=== PATIENT | female | born 1940 | race Caucasian/White ===

== ENCOUNTER → 2018-09-22 12:47 | Outpatient (CLI) | payer MEDICARE, SELFPAY ==
--- NOTE | 2018-09-22 | DI.CT.S_ITS ---
PROCEDURE: CT UE LT WO CON INDICATIONS: PRIMARY OSTEOARTHRITIS OF LEFT SHOULDER. Left shoulder pain TECHNIQUE: Noncontrast 1-1.5 mm thick sections acquired from the acromioclavicular joint to the inferior scapula, with coronal and sagittal reformatting. COMPARISON: None. FINDINGS: Image quality: Excellent. Bones: Moderate to severe glenohumeral joint osteoarthritis is seen with significant joint space narrowing, extensive subchondral sclerosis and cyst formation. Prominent inferior marginal osteophyte formation is noted. A large intraosseous cyst in superior glenoid is seen. Mild to moderate acromioclavicular joint osteoarthritis is noted. No fracture or dislocation. No suspicious bony lesions. No significant glenoid version. Soft tissues: Small to moderate glenohumeral joint effusion is seen. No full-thickness rotator cuff tendon rupture is identified. Mild supraspinatus muscle atrophy is seen. IMPRESSION: 1. Moderate to severe glenohumeral joint osteoarthritis. Mild to moderate acromioclavicular joint osteoarthritis. No significant glenoid version. No fracture or dislocation. No suspicious bony lesion. 2. Small to moderate amount of joint effusion. No gross full-thickness rotator cuff tendon rupture. Mild supraspinatus muscle atrophy. Dictated by: Chirag Marks M.D. on 09/22/2018 at 13:48 Approved by: Chirag Marks M.D. on 09/22/2018 at 13:54
== END ==
PROVIDERS: PCP Family Medicine; Visit Provider Orthopaedic Surgery
DX: M19.012 Primary osteoarthritis, left shoulder (principal)
CPT/HCPCS: 73200

== ENCOUNTER 2019-10-10 06:05 | Inpatient (IN) | payer MEDICARE, SELFPAY ==
[2019-09-28 08:33] VITALS: BMI 22.3
[2019-10-10] VITALS (15 sets, daily range): BP systolic 100–149; BP diastolic 48–78; PULSE 72–102; RESP 12–18; TEMP 35.9–36.6; O2SAT 92–98; BMI 22.3
--- NOTE | 2019-10-10 06:00 | DI.RAD.S_ITS ---
PROCEDURE: XR SHOULDER LT MIN 2V INDICATIONS: post op TECHNIQUE: 1 views of the shoulder were acquired. COMPARISON: [facility] [place], CR, XR SHOULDER 2+ VIEWS LEFT, 06/28/2019, 10:42. FINDINGS: Expected interval postsurgical changes are present related to a left shoulder arthroplasty. The metallic prosthetic components appear to be appropriately positioned. No displaced periprosthetic fractures are identified. Degenerative changes of the acromioclavicular joint appear to be present. Expected postoperative changes within the overlying soft tissues are present with areas of soft tissue air and edema. A surgical drainage catheter is evident. No unexpected radiopaque foreign bodies are identified. IMPRESSION: Expected postsurgical changes related to a left shoulder arthroplasty. Dictated by: Samuel Nair M.D. on 10/10/2019 at 9:39 Approved by: Samuel Nair M.D. on 10/10/2019 at 9:40
[2019-10-10] MEDS: LACTATED RINGERS 1,000 ML 42 ML IV (06:45)
[2019-10-10] MEDS: CELECOXIB 200 MG CAPSULE PO (06:52)
[2019-10-10] MEDS: ACETAMINOPHEN 325 MG TABLET 975 MG PO ×3 (06:52→20:36)
[2019-10-10] MEDS: PREGABALIN 75 MG CAPSULE PO (06:53)
--- NOTE | 2019-10-10 07:12 | SUR.PREOP ---
Cleaned left shoulder per protocol. Patient denies any numbness or tingling to left upper extremity. Moderate radial pulse palpated. Awaiting anesthesiology, OR nurse, and surgeon.
--- NOTE | 2019-10-10 07:44 | PM.PREOP ---
Pre-operative Note Interval Note History & Physical reviewed/Exam performed by Physician: Yes Changes to H&P: No
[2019-10-10] MEDS: MIDAZOLAM 2 MG/2 ML VIAL IV (07:54)
--- NOTE | 2019-10-10 07:56 | PM.OP.1 ---
Operative Date/Time/Diagnoses Date of procedure: 10/10/19 Time of procedure: 09:35 Pre-op diagnosis: Left shoulder osteoarthritis Post-op diagnosis: same Procedure & Clinicians Procedure: Left total shoulder replacement Same procedure as scheduled: Yes Indications: The patient has had progressively worsening left shoulder pain with radiographic changes consistent with arthritis. Non-operative management has failed and the patient has requested total shoulder replacement. The risks, benefits and alternatives to surgery were discussed with the patient prior to proceeding. Risks discussed included, but were not limited to, failure to relieve pain, stiffness, infection, nerve damage, deep venous thrombosis, pulmonary embolism, stroke, coma, heart attack, permanent paralysis and , as well as the potential need for eventual revision of the prosthetic. Surgeon: Phil Chase Shipping And Receiving Coordinator: Marianne Antunez Click Yes if Unassisted: No Anesthesia Type: General, Peripheral nerve block and Local Operative Notes Findings: Severe osteoarthritis with large humeral osteophyte and loose body Closure Type: primary Specimen(s): none sent Prosthetic devices, grafts, tissues, transplants, or devices: Implants used in this procedure were manufactured by the [employer] and included and an Altivate short stem total shoulder system with a size 12 stem, a 42 mm all polyethylene pegged E +glenoid, a 42 x 18 mm eccentric humeral head, and a neutral neck. Applied: drain(s) and implant(s) Estimated Blood Loss (mL): 100 Blood products transfused: none Procedure in detail: The patient was seen in the pre-operative area, where the patient identified the left shoulder as the operative site and this was marked with my initials. The patient received pre-operative antibiotics, underwent an interscalene block, and was taken to the operating room and placed on the operative table in the supine position. After satisfactory anesthesia, a full ?time out? was performed. The patient was repositioned in the ?beach chair? position using a dedicated positioner. All pressure points were well padded, and the knees were slightly bent to prevent tension on the sciatic nerves. The left arm was prepared from the fingers to the base of the neck with ChloroPrep in the usual fashion and draped through sterile drapes. An approximately 15 cm incision was created, starting at the clavicle above the coracoid process and extended towards the deltoid insertion. The deltopectoral interval was used to access the shoulder. The cephalic vein was taken medially. A self retaining retractor was placed. The upper centimeter of the pectoralis major tendon was released. The ?three sisters? were identified and cauterized. The axillary nerve was palpated and protected throughout the case. The biceps was released from its groove and tenodesed over the top of the pectoralis major tendon. The subscapularis was released from the lesser tuberosity with a subscapularis peel and tagged for later repair. The shoulder was dislocated and a cutting guide was used for the proximal humeral osteotomy in 30 degrees of retroversion. A starter Reamer was used followed by the cylindrical reamers. This continued in larger sizes in till cortical bite was achieved. Sequential broaching was then performed until a line to line fit with the Reamer occurred. A proximal humeral protector was then placed. We then removed the self-retaining retractor and placed retractors to access the glenoid. The subscapularis was released with a ?360 degree release? with care being taken to protect the axillary nerve with the inferior portion of this procedure. The remnant of labrum and biceps stump were removed. The appropriate size reamer was chosen with the glenoid sizer, and the guide pin placed. The glenoid was appropriately reamed. The guide for the peripheral holes was used and the center hole enlarged. The trial glenoid was placed with good stability. We then cemented the final implant into place after irrigating the peg holes and drying them with thrombin-soaked Gelfoam. We returned our attention to the humerus, a trial humeral head was applied and a trial reduction performed. Stability was checked with 50% posterior translation with spontaneous reduction, 45? external rotation at the side with the subscapularis held in the repaired position and 70? of internal rotation in the ?scarecrow position?. This was felt to be satisfactory and the appropriate implants were opened. Five holes were drilled along the humeral osteotomy and #2 Ethibond sutures placed for eventual subscapularis repair. The humeral prosthetic was impacted into the humerus. The humeral head was applied when the stem was still slightly proud and impacted to both seat the head and fully seat the stem. The joint was relocated one final time. The joint was irrigated and the subscapularis repaired to the previously placed sutures using Prateek-Jhon sutures. The top of the subscapularis was closed to the leading edge of the supraspinatus with a figure of 8 #2 Ethibond to close the rotator interval. A deep drain was placed and brought out supero-laterally. The deltopectoral interval was closed with interrupted 0 Vicryl. The subcutaneous layer was closed with 3-0 Vicryl, and the skin with a running 3-0 V-Lock suture and SteriStrips. An Aquacel Ag dressing was applied, the patient?s arm was placed in a sling, and the patient was taken to recovery having tolerated the procedure well. Complications: none Post-operative Condition: stable Disposition: PACU Plan for aftercare: The patient will be maintained on a standard total shoulder replacement protocol with passive range of motion limited to 90 degrees forward flexion, 0 degrees external rotation at the side, 0 degrees abduction and internal rotation to the body. The patient will receive aspirin and sequential compression devices for DVT prophylaxis. The patient will be discharged home when safe for the home environment, likely tomorrow.
--- NOTE | 2019-10-10 08:03 | SUR.PREOP ---
Block start time 0757[] . Monitoring initiated and maintained throughout procedure. Oxygen and medications given per anesthesiologist instructions. Patient remained stable throughout procedure, no adverse reactions noted. Block end time 0804 [].
[2019-10-10] MEDS: CEFAZOLIN 2 GM/100 ML FROZ.PIGGY IV (08:04)
[2019-10-10] MEDS: TRANEXAMIC ACID 1,000 MG VIAL 1000 MG INJ ×2 (08:20→09:36)
--- NOTE | 2019-10-10 08:41 | SUR.OPER ---
Beach chair with Napoleon/Terrance shoulder positioner. Lower body on padded OR bed. Head in foam padded head cradle, secured with straps. Non-operative arm secured <90 degrees abduction. Pillow under knees. Safety belt at thigh. Cloth tape over blanket over lower legs.
[2019-10-10] MEDS: THROMBIN (RECOMBINANT) 5,000 UNIT VIAL 5000 UNIT TOP (08:53)
[2019-10-10] MEDS: BUPIVACAINE 0.5% W/ EPI (PF) 30 ML VIAL INJ (08:53)
--- NOTE | 2019-10-10 10:47 | SUR.PHASEI ---
Dressing CDI. Patient awake, answers questions appropriately. Denies pain/nausea. Tolerating po. Scant drainage in hemovac.
[2019-10-10] MEDS: LACTATED RINGERS 1,000 ML 125 ML IV ×2 (11:08→19:12)
--- NOTE | 2019-10-10 13:53 | PT.IIE ---
Current Diagnoses Primary osteoarthritis, right shoulder (10/10/19) Surgery Performed Operation Date: 10/10/19 07:45 Actual Procedures p Total Shoulder Arthroplasty(Left) - Phil Chase MD Surgical History (Last Updated 11/30/18 @ 13:10 by Faye Haley, RN) H/O: hysterectomy (Acute) History of lumbar surgery (Acute) Hx of tonsillectomy (Acute) Status post bilateral cataract extraction (Acute) Medical History (Last Updated 11/30/18 @ 13:27 by Faye Haley RN) HTN (hypertension) (Acute) Hyperlipidemia (Acute) Santana's neuroma of left foot (Acute) Pneumonia (Acute) Polyneuropathy (Acute) Raynaud's phenomenon (Acute) Physical Therapy Inpatient Evaluation/Re-Eval M1 PT/OT-IP Prior Functional Status Start: 10/10/19 14:38 Freq: NEEDED Status: Active Protocol: Document 10/10/19 13:53 AB (Rec: 10/10/19 14:55 AB [id number]) Medical Review Prior Functional Status Medical History Reviewed Yes Communication able to make needs known Mobility and Gait pt stated that she is independent with all mobilities and ambulation without AD Social History Household Members none Living Arrangements House Number of Floors (Floors) One Floor Number of Stairs To Enter/Railing? no steps to enter Home Environment High Toilet,Walk in Shower Home Equipment Straight Cane,Grab Bars Near Toilet,Grab Bars In Shower Additional Social History Comment pt stated that a caregiver will come in 6pm until 6am for 2 nights and will be mostly by herself but has nephews around that will check on her. stated that she also can call a friend if she needs assistance. Pt plans to sleep on her recliner M2 PT-IP Current Condition Start: 10/10/19 14:38 Freq: NEEDED Status: Active Protocol: Document 10/10/19 13:53 AB (Rec: 10/10/19 14:55 AB [id number]) Physical Therapy Current Condition Current Condition Evaluation Date 10/10/19 Treatment Diagnosis s/p L TSA; difficulty in walking Onset Date 10/10/2019 Precautions Shoulder Precautions Sling,PROM,Internal Rotation to Body,No External Rotation, No Abduction,Forward Flexion to 90 degrees,Pendulums Weight Bearing Status Weight Bearing Status Non-Weight Bearing Allowed Weight Bearing Amount (enter % NWB LUE or #) (%) M3 PT-IP Subjective Start: 10/10/19 14:38 Freq: NEEDED Status: Active Protocol: Document 10/10/19 13:53 AB (Rec: 10/10/19 14:55 AB [id number]) Subjective Physical Therapy Visit Type Type Initial Evaluation Visit Start Time 13:53 Visit Stop Time 14:30 Total Visit Minutes 37 Number of CLINICAL RESOURCE MANAGER Visits 0 Physical Therapy Visit Comments Patient Comments pt agreeable to do PT; c/o numbness on LUE but can feel her L hand but not the elbow/ shoulder Therapy Pain Assessment Pain Present Pain Present Denied Pain M4 PT-IP Mobility and Gait Start: 10/10/19 14:38 Freq: NEEDED Status: Active Protocol: Document 10/10/19 13:53 AB (Rec: 10/10/19 14:55 AB [id number]) PT-Bed Mobility Assessment Supine to Sit Supine to Sit Contact Guard Assistance,2 Person Assistance,Bedrails PT-Transfer Assessment Sit to and From Stand Sit to and from Stand Contact Guard Assistance,1 Person Assistance Equipment Transfer Assistive Device None,Gait Belt Orthotic/Prosthetic Devices or Brace: Yes Transfers Transfer Destination Chair Transfer Technique Stand Step Pivot Transfer Ability Level of Assist Contact Guard Assistance Comments Mobility Comments pt completed supine to sit CGA and cues. pt went out on the L side of the bed. educated pt on NWB restriction on LUE and making sure that pt does not roll and lean on LUE. pt understood. pt plans to sleep on her recliner for a few days. Gait Assessment Gait Gait Assistance Required: Contact Guard Assist Distance (Feet) 35 Able to Maintain Weight Bearing Status Yes During Gait Assistive Devices Assistive Device None,Gait Belt Orthotic/Prosthetic Devices or Brace: Yes Gait Deviations General Gait Pattern Antalgic,Decreased Stride Length,Decreased Feet Clearance,Step-to Gait Factors Limiting Gait Function Factors Limiting Gait Function Decreased Activity Tolerance, Decreased Sensation,Decreased Strength,Difficulty Following Directions,Limited Range of Motion,Poor Balance,Poor Safety Awareness Comments Gait Comments pt presents with unsteady gait , decrease step length. PT-Balance Assessment Sitting Balance and Reactions Static Sitting Balance Ability Good Dynamic Sitting Balance Ability Good Standing Balance and Reactions Static Standing Balance Ability Fair Dynamic Standing Balance Ability Fair Device Used without AD M5 PT-IP Objective Assessments Start: 10/10/19 14:38 Freq: NEEDED Status: Active Protocol: Document 10/10/19 13:53 AB (Rec: 10/10/19 14:55 AB [id number]) Orientation Orientation/Cognition Level of Alertness Alert Orientation Name,Age,Place,Situation Language Function Ability No Deficits Noted Safety Awareness Decreased Safety Awareness Memory Description Short Term Impaired Gross Range of Motion Lower Extremity ROM Assessment Within Functional Limits Strength Lower Extremity Strength Assessment Within Functional Limits Sensation Assessment Sensation Gross Sensation Left UE Impaired Sensation Description Numbness Muscle Tone Comments Muscle Tone Comments pt does not have full motor control on LUE M6 PT-IP Treatment Start: 10/10/19 14:38 Freq: NEEDED Status: Active Protocol: Document 10/10/19 13:53 AB (Rec: 10/10/19 14:55 AB [id number]) Physical Therapy Treatment Education Education Provided Precautions,Weight Bearing Status,Post-Op Packet,Safety Brace Education Donning,Frazee,Patient Other Treatments Other Treatment Performed educated pt on sling management M7 PT-IP Assessment and Plan Start: 10/10/19 14:38 Freq: NEEDED Status: Active Protocol: Document 10/10/19 13:53 AB (Rec: 10/10/19 14:55 AB [id number]) PT Summary Assessment and Plan Potential Rehabilitation Potential Good Status of Condition at Evaluation Evolving Summary Impairments Pain,ROM,Strength,Balance, Coordination,Sensation,Tone, Cognition,Bed Mobility, Transfers,Gait,Activity Tolerance Assessment Summary pt requiring CGA with mobility and will likely improve during hospital stay. will need assist with sling management and pt plans for her friends to assist her with that. pt plans to go home and stated that her nephews and friends will assist her when needed. Goals Bed Mobility Goal Independent Transfer Goal Independent Gait Goal Independent Gait Distance 200 Days to Meet Goals 5 Frequency of Treatment Frequency Of Treatment Twice a Day Treatment Plan Physical Therapy Treatment Plan Bed Mobility Training,Transfer Training,Gait Training, Therapeutic Exercise,Balance Retraining,Post Op Education, Discharge Planning,Hot or Cold Pack,Neuromuscular Re-ed, Coordination Retraining,Manual Therapy Recommendations To Nursing Amount of Assist Needed 1 Person Assist Discharge Recommendations PT Discharge Recommendations Home with Assistance, Outpatient PT
[2019-10-10] MEDS: DOCUSATE 100 MG CAPSULE PO (20:36)
[2019-10-10] MEDS: ASPIRIN EC 81 MG TABLET PO (20:36)
[2019-10-10] MEDS: ATORVASTATIN 10 MG TABLET PO (20:37)
[2019-10-10] MEDS: LISINOPRIL 5 MG TABLET PO (20:37)
[2019-10-11] MEDS: OXYCODONE IR 5 MG TABLET PO (02:18)
[2019-10-11 03:21] VITALS: BP 146/79; PULSE 86; RESP 16; TEMP 36.1; O2SAT 94
[2019-10-11 06:09] LABS: Hematocrit 35.3 % (36-46); Hemoglobin 11.7 g/dL (12.0-16.0); Mean Corpuscular HGB Conc 33.2 % (30-36); Mean Corpuscular Hemoglobin 31.1 PG (26-34); Mean Corpuscular Volume 93.7 fL (80-100); Platelet Count 253 X10^3/uL (150-400); Red Blood Cell Count 3.77 X10^6/uL (4.0-5.2); Red Cell Distribution Width 14.6 % (11.6-14.8); White Blood Cell Count 12.6 X10^3/uL (4.5-11.0)
[2019-10-11] MEDS: OXYCODONE IR 10 MG TABLET PO ×3 (06:25→12:39)
--- NOTE | 2019-10-11 07:39 | PM.DS.1 ---
History of Present Illness History of Present Illness Date Patient Seen: 10/11/19 Time Patient Seen: 07:39 Chief complaint: [id number] Left Total Shoulder Arthroplasty Narrative: The history and physical are contained in the chart previously completed note. Please refer to that note for this information. Discharge Providers Provider Date of admission: 10/10/19 06:05 Discharge Date: 10/11/19 Primary care physician: Deepak Billingsley MD Consults: 10/10/19 10:45 Consult to Discharge Planning Routine Comment: Consult to Physical Therapy Evaluate & Treat Comment: pendulums, 90 FF, 0 ER, 0 ABD, IR to body Physician Instructions: Evaluate and Treat Discharge provider: Phil Chase MD Summary Hospital Course Discharge Diagnosis: 1. Left shoulder osteoarthritis 2. Mild post hemorrhagic anemia Hospital Course: The patient was admitted to the hospital and taken directly to the operating room on October 10, 2019 for a left shoulder replacement. She tolerated the procedure well and was stable overnight with reasonable pain control. On postoperative day 1 it was felt she was ready for discharge. Status at Discharge Cognitive/behavioral status at discharge: oriented Functional status at discharge: independent ambulation Overall status at discharge: patient is progressing back to baseline Time Spent with Patient Time spent: Less than 30 minutes Exam Vital Signs (past 8 hours): - 10/10/19 23:43 10/11/19 03:21 Temperature 96.7 F L 97.0 F L Pulse Rate 86 86 Respiratory Rate 16 16 Blood Pressure 118/62 146/79 H Pulse Oximetry 95 94 Oxygen Delivery Method Room Air Oxygen Flow Rate 0 Narrative Exam Narrative: Left shoulder wound is dressed with no drainage on the bandage. Light touch is intact in the radial, ulnar, median, muscular cutaneous and axillary nerve distribution. She can extend her thumb, abduct her thumb, abduct her fingers and can fire her biceps and deltoid. Objective Labs Result Diagrams: 10/11/19 05:30 Labs: Laboratory Results - last 24 hr 10/11/19 05:30 WBC 12.6 H RBC 3.77 L Hgb 11.7 L Hct 35.3 L MCV 93.7 MCH 31.1 MCHC 33.2 RDW 14.6 Plt Count 253 Discharge Plan Discharge Plan Patient Disposition: Home Discharge orders & Medications Prescriptions: New acetaminophen 325 mg Tablet 975 mg PO TID 30 Days Qty: 270 RF: 0 aspirin 81 mg Tablet,Delayed Release (Dr/Ec) 81 mg PO BID 42 Days Qty: 84 RF: 0 oxycodone 5 mg Tablet 5 mg PO Q4H PRN (Reason: Pain, Moderate (4-6)) Qty: 40 RF: 0 Continued ibuprofen 200 MG tablet 200 mg PO PRN PRN (Reason: pain) Qty: 0 RF: 0 atorvastatin 10 mg Tablet 10 mg PO BEDTIME RF: 0 lisinopril 5 mg Tablet 5 mg PO BEDTIME RF: 0 Discontinued aspirin [Aspir-Low] 81 mg Tablet,Delayed Release (Dr/Ec) 81 mg PO DAILY RF: 0 Follow up/Referrals: Deepak Billingsley MD [Primary Care Provider] - Phil Chase MD [Physician] - 2 Weeks Discharge Health Status Multidrug resistant organism: No MDRO Diet/Activity/Treatments Diet: Diet as Tolerated and Regular Activity: Keep your left arm in the sling except for pendulums and physical therapy exercises. You may use your left hand in front of your body below shoulder level. Cold/Heat Therapy: Apply ice to the left shoulder for 15 minutes every hour as needed for pain control. Other treatments: Continue the sling until told to discontinue it by physical therapy. Skin/Wound/Dressing Care Report to your healthcare provider any signs of infection, such as:: chills, fever, night sweats, increased pain, unusual drainage and unusual redness Dressing: Leave the dressing on until your follow-up. You may shower with the dressing in place. If the central strip of the dressing becomes saturated with either water or blood please contact the office. Visit Report/Discharge Packet Instructions: DI for Prescription Opioid Use, DI for Shoulder Replacement Stand Alone Forms: Surgery Discharge Discharge Data Primary Care Provider: Deepak Billingsley Quality VTE Deep Vein Thrombosis/Pulmonary Embolism Present on Admission: No
[2019-10-11 07:40] VITALS: BP 125/67; PULSE 80; RESP 16; TEMP 36.8; O2SAT 94
[2019-10-11] MEDS: ASPIRIN EC 81 MG TABLET PO (08:21)
[2019-10-11] MEDS: ACETAMINOPHEN 325 MG TABLET 975 MG PO (08:21)
[2019-10-11] MEDS: DOCUSATE 100 MG CAPSULE PO (08:21)
--- NOTE | 2019-10-11 09:55 | PT.IPTN ---
Current Diagnoses Primary osteoarthritis, right shoulder (10/10/19) Surgery Performed Operation Date: 10/10/19 07:45 Actual Procedures p Total Shoulder Arthroplasty(Left) - Phil Chase MD Physical Therapy Treatment Note M2 PT-IP Current Condition Start: 10/10/19 14:38 Freq: NEEDED Status: Active Protocol: Document 10/10/19 13:53 AB (Rec: 10/10/19 14:55 AB [id number]) Physical Therapy Current Condition Current Condition Evaluation Date 10/10/19 Treatment Diagnosis s/p L TSA; difficulty in walking Onset Date 10/10/2019 Precautions Shoulder Precautions Sling,PROM,Internal Rotation to Body,No External Rotation, No Abduction,Forward Flexion to 90 degrees,Pendulums Weight Bearing Status Weight Bearing Status Non-Weight Bearing Allowed Weight Bearing Amount (enter % NWB LUE or #) (%) M3 PT-IP Subjective Start: 10/10/19 14:38 Freq: NEEDED Status: Active Protocol: Document 10/11/19 09:28 DARIN (Rec: 10/11/19 09:55 LJ [id number]) Subjective Physical Therapy Visit Type Type Treatment Note Visit Start Time 09:28 Visit Stop Time 09:40 Total Visit Minutes 12 Number of MAINTENANCE SCHEDULER Visits 1 Physical Therapy Visit Comments Patient Comments Pt agreeable to get up and walk. States she has no real pain and can feel her thumb now Therapy Pain Assessment Pain Present Pain Present Denied Pain M4 PT-IP Mobility and Gait Start: 10/10/19 14:38 Freq: NEEDED Status: Active Protocol: Document 10/11/19 09:28 LJ (Rec: 10/11/19 09:55 LJ [id number]) PT-Bed Mobility Assessment Supine to Sit Supine to Sit Standby Assistance,Bedrails PT-Transfer Assessment Sit to and From Stand Sit to and from Stand Contact Guard Assistance,1 Person Assistance Equipment Transfer Assistive Device None,Gait Belt Orthotic/Prosthetic Devices or Brace: Yes Transfers Transfer Destination Chair Transfer Technique Stand Step Pivot Transfer Ability Level of Assist Standby Assistance Comments Mobility Comments Pt completed bed mobility SBA exiting on the left side of bed. Sit<>stand is SBA. Cued pt to avoid leaning on LUE for transfers Gait Assessment Gait Gait Assistance Required: Contact Guard Assist Distance (Feet) 200 Able to Maintain Weight Bearing Status Yes During Gait Assistive Devices Assistive Device None,Gait Belt Orthotic/Prosthetic Devices or Brace: Yes Gait Deviations General Gait Pattern Decreased Stride Length, Decreased Feet Clearance Factors Limiting Gait Function Factors Limiting Gait Function Decreased Activity Tolerance, Decreased Sensation,Decreased Strength,Difficulty Following Directions,Limited Range of Motion,Poor Balance,Poor Safety Awareness Comments Gait Comments Pt gait improved with steadiness. She had no LOB and was able to start and stop and avoid other people and obstacles in hallway without an issue M5 PT-IP Objective Assessments Start: 10/10/19 14:38 Freq: NEEDED Status: Active Protocol: Document 10/10/19 13:53 AB (Rec: 10/10/19 14:55 AB [id number]) Orientation Orientation/Cognition Level of Alertness Alert Orientation Name,Age,Place,Situation Language Function Ability No Deficits Noted Safety Awareness Decreased Safety Awareness Memory Description Short Term Impaired Gross Range of Motion Lower Extremity ROM Assessment Within Functional Limits Strength Lower Extremity Strength Assessment Within Functional Limits Sensation Assessment Sensation Gross Sensation Left UE Impaired Sensation Description Numbness Muscle Tone Comments Muscle Tone Comments pt does not have full motor control on LUE M6 PT-IP Treatment Start: 10/10/19 14:38 Freq: NEEDED Status: Active Protocol: Document 10/11/19 09:28 LJ (Rec: 10/11/19 09:55 [id number]) Physical Therapy Treatment Education Education Provided Precautions,Weight Bearing Status,Safety Other Treatments Other Treatment Performed educated pt on sling management. States her nephew is a PT in [place] and will assist her M7 PT-IP Assessment and Plan Start: 10/10/19 14:38 Freq: NEEDED Status: Active Protocol: Document 10/11/19 09:28 LJ (Rec: 10/11/19 09:55 [id number]) PT Summary Assessment and Plan Potential Rehabilitation Potential Good Status of Condition at Evaluation Evolving Summary Impairments Pain,ROM,Strength,Balance, Coordination,Sensation,Tone, Cognition,Bed Mobility, Transfers,Gait,Activity Tolerance Assessment Summary Pt SBA-CGA for all mobility and gait. Improved gait steadiness and awareness. Pt is safe to DC with assistance Goals Bed Mobility Goal Independent Transfer Goal Independent Gait Goal Independent Gait Distance 200 Days to Meet Goals 5 Frequency of Treatment Frequency Of Treatment Twice a Day Treatment Plan Physical Therapy Treatment Plan Bed Mobility Training,Transfer Training,Gait Training, Therapeutic Exercise,Balance Retraining,Post Op Education, Discharge Planning,Hot or Cold Pack,Neuromuscular Re-ed, Coordination Retraining,Manual Therapy Recommendations To Nursing Amount of Assist Needed Standby Assistance Discharge Recommendations PT Discharge Recommendations Home with Assistance, Outpatient PT
--- NOTE | 2019-10-11 10:01 | PC.NURSE ---
Addendum entered by Sigrid Billings R.N. 10/11/19 13:02: Discharge summary packet reviewed with pt. Pt states has follow up appointment already made. Has stool softeners at home as well. No further voiced concerns and states is ready to go home. Pt has a family member present to drive her home, pt left unit at 1301 via wheelchair in no distress with [employer] escort, pt left with all belongings. Original Note: Day Shift- Pt A&OX4, rates pain 4-5/10 deep aching to left shoulder. Pain management plan discussed, PRN Oxycodone given at 0945 and plan for next dose around 1245 prior to discharge around 1300. Left shoulder aquacel dressing CDI. Hemovac emptied for approx 15mls of bloody drainage. Tegaderm dressing underneath aquacel dressing, therefore tegaderm dressing cut along edge. Hemovac removed at 0940 without difficulty, area cleansed with NS. pat dry and folded 2X2 gauze and tegaderm placed overlapping with aquacel dressing. CMS+, pt denies any numbness or tingling, radial pulse moderate upon palpation. pt able to wiggle fingers and bend at wrist without difficulty. Left arm in sling. ice pack placed with instructions for 20min on/off. Pt appropriate, cooperative, able to make needs known using call light. OOB to chair with PT around 0930. Pt states her discharge ride is coming from [place] and discharge will be around 1300.
--- NOTE | 2019-10-11 13:56 | CM.IDA ---
Initial DCP Assessment Note: Pt is an 79 yo female, resident of [facility], now POD#1 from shoulder surgery w/ Dr Chase PCP: Deepak Billingsley Payer: [employer] Reviewed chart, pt discussed in multidisciplinary rounds this morning. Therapy has cleared pt for return home w/family to assist and pt has planned for home, DC order from [facility] has already been initiated this morning. Met w/pt briefly and she felt confident about return home w/her nephew to assist her. No needs expected from DC planning team although will remain available in case this changes today. MARY Hoyos
== END 2019-10-11 13:01 | disposition home or self-care (01) | DRG 483 ==
PROVIDERS: Admitting Provider Orthopaedic Surgery; PCP Family Medicine; Visit Provider Orthopaedic Surgery
PROC: 0RRK0JZ Replacement of Left Shoulder Joint with Synthetic Substitute, Open Approach (ICD-10-PCS; CPT 23472; principal; 2019-10-10 07:45)
DX: M19.012 Primary osteoarthritis, left shoulder (principal); I10 Essential (primary) hypertension; E78.5 Hyperlipidemia, unspecified; M25.712 Osteophyte, left shoulder; M24.012 Loose body in left shoulder
CPT/HCPCS: 36415; 64450; 73020; 85027; 97116; 97162; C1776; J0690; J1100; J2250; J2405; J2704; J3010

== ENCOUNTER → 2025-09-26 12:15 | Outpatient (CLI) | payer MEDICARE, SELFPAY ==
[2019-10-10 10:49] VITALS: BMI 22.3
--- NOTE | 2025-09-26 12:18 | DI.RAD.S_ITS ---
PROCEDURE: XR LUMBAR SPINE MIN 4V INDICATIONS: hx lumbar surgery, low back pain, eval hardware TECHNIQUE: 5 views of the lumbar spine acquired, including flexion and extension views. COMPARISON: [facility], MR, MR LUMBAR SPINE WITHOUT CONTRAST, 08/30/2025, 18:05. FINDINGS: Bones: 5 nonrib-bearing vertebrae are present. There is posterior fusion at L4-5. Hardware is intact without hardware fracture or periprosthetic lucency to suggest loosening. Alignment is stable. Right-sided scoliotic curvature is present with apex at L2-3. Multilevel degenerative disc and foraminal narrowing most severe at L5- S1. Chronic appearing wedge deformities are present at L ovary No vertebral body compression fractures. No suspicious bony lesions. Soft tissues: Overlying bowel gas pattern is normal. No suspicious soft tissue calcifications. Flexion/extension: There is normal range of motion, with preserved normal alignment. IMPRESSION: L4-5 posterior fusion. Hardware appears intact. Dictated by: Azalia Lamb M.D. on 09/27/2025 at 1:28 Approved by: Azalia Lamb M.D. on 09/27/2025 at 1:30
== END ==
PROVIDERS: PCP Family Medicine; Referring Provider Physical Medicine & Rehabilitation; Visit Provider Physical Medicine & Rehabilitation
DX: M51.369 Other intervertebral disc degeneration, lumbar region without mention of lumbar back pain or lower extremity pain (principal); M51.379 Other intervertebral disc degeneration, lumbosacral region without mention of lumbar back pain or lower extremity pain; M48.061 Spinal stenosis, lumbar region without neurogenic claudication; M48.07 Spinal stenosis, lumbosacral region; M43.8X6 Other specified deforming dorsopathies, lumbar region; Z98.890 Other specified postprocedural states; Z98.1 Arthrodesis status
CPT/HCPCS: 72110